=== PATIENT | male | born 1975 | race Hispanic/Latino ===

== ENCOUNTER 2023-02-02 23:22 | Inpatient (IN) | payer SELFPAY ==
[2023-02-02] MEDS ORDERED: Acetaminophen 325 MG TAB ONE (23:58)
[2023-02-03 00:36] LABS: #Basophils 0.1 thou/uL (0.0-0.2); #Eosinphils 0.1 thou/uL (0.0-0.7); #Monocytes 1.2 thou/uL (0.11-0.59); %Basophils 0.4 % (0.0-1.0); %Eosinophils 0.4 % (0.0-10.0); %Lymphocytes 14.3 % (21.0-51.0); %Monocytes 9.7 % (0.0-10.0); %Neutrophils 74.8 % (42.0-75.0); Hematocrit 35.9 % (42.0-52.0); Mean Corpuscular HGB CONC 33.4 g/dL (32.0-36.0); Mean Corpuscular Hemoglobin 27.1 pg (27.0-31.0); Mean Platelet Volume 8.8 fL (7.4-10.4); Platelet Count 422 10x3/uL (130-400); RBC Distribution Width 13.5 % (11.5-14.5); Red Blood Cell (RBC) Count 4.43 mill/uL (4.70-6.10)
[2023-02-03 00:49] LABS: Bacteria/HPF None Seen HPF (None Seen); Bilirubin Negative (Negative); Blood, Urine 3+ (Negative); CAUTI Indications for Culture Acute Hematuria; Clarity Clear (Clear); Glucose, Urine (Dipstick) Greater than 1000 mg/dL (Negative); Ketone, Urine Trace mg/dL (Negative); Leukocyte Negative Leu/uL (Negative); Nitrite Negative (Negative); Protein, Urine (Dipstick) 20 mg/dL (Neg-Trace); RBC/HPF Greater than 50 HPF (0-3); Specific Gravity, Urine 1.031 (1.002-1.036); Squamous Epithelial None Seen HPF (0-3); Urobilinogen Normal mg/dL (Less than 2); WBC/HPF 21-50 HPF (0-3)
[2023-02-03 00:51] LABS: Urine Culture Reflex Yes Yes
[2023-02-03 01:07] LABS: ALT (SGPT) 17 U/L (8-55); AST (SGOT) 12 U/L (5-34); Albumin 4.2 g/dL (3.5-5.0); Alkaline Phosphatase 112 U/L (40-110); BUN (Urea Nitrogen) 16 mg/dL (8.9-20.6); Bilirubin, Total 0.5 mg/dL (0.2-1.2); Calc. Creatinine Clearance 0 mL/min (70-130); Calcium 9.5 mg/dL (7.8-10.44); Chloride 98 mmol/L (98-107); Estimated GFR 103; Globulin 3.7 g/dL (2.4-3.5); Glucose 383 mg/dL (70-105); Potassium 4.1 mmol/L (3.5-5.1); Protein, Total 7.9 g/dL (6.0-8.3); Sodium 131 mmol/L (136-145)
[2023-02-03 01:45] LABS: Anion Gap 13 mmol/L (10-20); Carbon Dioxide 23 mmol/L (22-29)
[2023-02-03] MEDS ORDERED: Piperacillin/Tazobactam 4.5 GM VIAL ONE (02:42)
[2023-02-03] MEDS ORDERED: Dextrose 5% in Water 1,000 ML IV PRN (02:51)
[2023-02-03] MEDS ORDERED: HumaLOG 300 UNITS/3 ML VIAL SC PRN (02:51)
[2023-02-03] MEDS ORDERED: HYDROcodone/Acetaminophen 5/325 mg Tablet PO PRN (02:51)
[2023-02-03] MEDS ORDERED: Glucagon 1 MG/ML KIT IM PRN (02:51)
[2023-02-03] MEDS ORDERED: Acetaminophen 325 MG TAB PO PRN (02:51)
[2023-02-03] MEDS ORDERED: Dextrose 50% Abboject 50 ML SYRINGE SLOW IVP PRN (02:51)
[2023-02-03] MEDS ORDERED: Ondansetron ODT 4 MG TAB PO PRN (02:51)
[2023-02-03] MEDS ORDERED: Ondansetron PF 4 MG/2 ML Vial IVP PRN (02:51)
[2023-02-03] MEDS ORDERED: Sodium Chloride 0.9% 1,000 ML IV SCH (03:00)
[2023-02-03 03:23] LABS: Hemoglobin A1c 11.3 % (4.0-6.0)
[2023-02-03] MEDS ORDERED: Phenazopyridine HCl 100 MG TAB PO SCH (03:45)
[2023-02-03] MEDS: cefTRIAXone\\ROCEPHIN 1 GM in Sodium Chloride 0.9% 100 ML IVPB SCH (04:41)
[2023-02-03] MEDS ORDERED: cefTRIAXone (ROCEPHIN) 1 GM VIAL ONE (04:42)
[2023-02-03 06:07] LABS: #Monocytes 1.4 thou/uL (0.11-0.59); #Neutrophils 8.3 thou/uL (1.40-6.50); %Basophils 0.4 % (0.0-1.0); %Eosinophils 0.4 % (0.0-10.0); %Lymphocytes 13.5 % (21.0-51.0); %Monocytes 11.9 % (0.0-10.0); %Neutrophils 73.4 % (42.0-75.0); Hematocrit 34.5 % (42.0-52.0); Hemoglobin 11.2 g/dL (14.0-18.0); Mean Corpuscular HGB CONC 32.5 g/dL (32.0-36.0); Mean Corpuscular Hemoglobin 26.8 pg (27.0-31.0); Mean Corpuscular Volume 82.5 fl (78.0-98.0); Mean Platelet Volume 8.7 fL (7.4-10.4); Platelet Count 384 10x3/uL (130-400); RBC Distribution Width 13.8 % (11.5-14.5); Red Blood Cell (RBC) Count 4.18 mill/uL (4.70-6.10); White Blood Cell (WBC) Count 11.3 10x3/uL (4.8-10.8)
[2023-02-03 06:31] VITALS: BMI 26.6
[2023-02-03 06:43] LABS: Anion Gap 10 mmol/L (10-20); BUN (Urea Nitrogen) 11 mg/dL (8.9-20.6); Calc. Creatinine Clearance 113 mL/min (70-130); Calcium 8.9 mg/dL (7.8-10.44); Carbon Dioxide 25 mmol/L (22-29); Chloride 101 mmol/L (98-107); Estimated GFR 111; Glucose 255 mg/dL (70-105); Potassium 3.9 mmol/L (3.5-5.1); Sodium 132 mmol/L (136-145)
[2023-02-03] MEDS: Phenazopyridine HCl 100 MG TAB PO SCH ×3 (08:09→17:28)
[2023-02-03] MEDS ORDERED: Insulin Glargine 30 UNITS/0.3 ML VIAL SC SCH (09:00)
[2023-02-03] MEDS: HumaLOG 300 UNITS/3 ML VIAL SC PRN ×2 (12:40→17:28)
[2023-02-03] MEDS ORDERED: Iopamidol 370 76% 100 ML VIAL ONE (15:16)
[2023-02-03] MEDS: Insulin Glargine 30 UNITS/0.3 ML VIAL SC SCH (20:51)
[2023-02-04] MEDS: cefTRIAXone\\ROCEPHIN 1 GM in Sodium Chloride 0.9% 100 ML IVPB SCH (04:52)
[2023-02-04] MEDS: HumaLOG 300 UNITS/3 ML VIAL SC PRN ×3 (06:19→17:30)
[2023-02-04] MEDS ORDERED: glipiZIDE 10 MG TAB PO SCH (09:00)
[2023-02-04] MEDS: Lisinopril 5 MG TAB PO SCH (09:20)
[2023-02-04] MEDS: Insulin Glargine 30 UNITS/0.3 ML VIAL SC SCH ×2 (09:23→20:22)
[2023-02-04] MEDS: Atorvastatin Calcium 10 MG TAB PO SCH (09:23)
[2023-02-04] MEDS: Phenazopyridine HCl 100 MG TAB PO SCH ×3 (09:24→17:30)
[2023-02-05] MEDS: cefTRIAXone\\ROCEPHIN 1 GM in Sodium Chloride 0.9% 100 ML IVPB SCH (03:40)
[2023-02-05] MEDS: HumaLOG 300 UNITS/3 ML VIAL SC PRN ×2 (06:40→13:52)
[2023-02-05 08:05] LABS: #Basophils 0.1 thou/uL (0.0-0.2); #Eosinphils 0.2 thou/uL (0.0-0.7); #Monocytes 0.8 thou/uL (0.11-0.59); #Neutrophils 4.5 thou/uL (1.40-6.50); %Basophils 0.7 % (0.0-1.0); %Eosinophils 2.9 % (0.0-10.0); %Lymphocytes 27.2 % (21.0-51.0); %Monocytes 10.2 % (0.0-10.0); %Neutrophils 58.7 % (42.0-75.0); Hematocrit 38.4 % (42.0-52.0); Hemoglobin 12.5 g/dL (14.0-18.0); Mean Corpuscular HGB CONC 32.6 g/dL (32.0-36.0); Mean Corpuscular Hemoglobin 26.5 pg (27.0-31.0); Mean Corpuscular Volume 81.5 fl (78.0-98.0); Mean Platelet Volume 8.6 fL (7.4-10.4); Platelet Count 469 10x3/uL (130-400); RBC Distribution Width 13.5 % (11.5-14.5); Red Blood Cell (RBC) Count 4.71 mill/uL (4.70-6.10); White Blood Cell (WBC) Count 7.7 10x3/uL (4.8-10.8)
[2023-02-05 08:23] LABS: Anion Gap 15 mmol/L (10-20); BUN (Urea Nitrogen) 13 mg/dL (8.9-20.6); Calc. Creatinine Clearance 113 mL/min (70-130); Calcium 9.6 mg/dL (7.8-10.44); Carbon Dioxide 24 mmol/L (22-29); Chloride 100 mmol/L (98-107); Estimated GFR 111; Glucose 182 mg/dL (70-105); Magnesium 2.1 mg/dL (1.6-2.6); Sodium 135 mmol/L (136-145)
[2023-02-05] MEDS: Atorvastatin Calcium 10 MG TAB PO SCH (09:04)
[2023-02-05] MEDS: Lisinopril 5 MG TAB PO SCH (09:04)
[2023-02-05] MEDS: Insulin Glargine 30 UNITS/0.3 ML VIAL SC SCH (09:04)
[2023-02-05] MEDS: Phenazopyridine HCl 100 MG TAB PO SCH ×2 (09:05→13:52)
[2023-02-05 12:34] VITALS: BP 109/69; TEMP 97.8
[2023-02-05] MEDS ORDERED: Sulfameth/Trimethoprim DS 800-160mg TAB PO SCH (15:15)
[2023-02-05 16:38] LABS: HIV (1/2) Antibody/Antigen Non-Reactive (NonReactive); HIV 1/2 INDEX 0.42 S/CO (<1.00)
[2023-02-05] MEDS ORDERED: AMOXicillin 250 MG CAP PO SCH (21:00)
[2023-02-06] MEDS ORDERED: Sulfameth/Trimethoprim DS 800-160mg TAB PO SCH (09:00)
== END 2023-02-05 17:32 | disposition home or self-care (01) | DRG 690 ==
LOC: ERS 23:22 → ERHOLD 02-03 02:56 → 2SW 02-03 03:16 → T4-B 02-04 16:31
PROVIDERS: ADMIT Internal Medicine; ATTEND Family Medicine
DX: N30.01 Acute cystitis with hematuria (principal); E11.65 Type 2 diabetes mellitus with hyperglycemia; I10 Essential (primary) hypertension; E78.5 Hyperlipidemia, unspecified; Z82.49 Family history of ischemic heart disease and other diseases of the circulatory system; Z82.3 Family history of stroke; Z79.4 Long term (current) use of insulin; Z79.899 Other long term (current) drug therapy
CPT/HCPCS: 36415; 36416; 74177; 80048; 80053; 81001; 83036; 83605; 83735; 84443; 85025; 87040; 87077; 87086; 87186; 87389; 93005; J0696; J1815; J2543; J3490; J7050; Q9967